=== PATIENT | female | born 1950 | race Hispanic/Latino ===

== ENCOUNTER → 2024-12-25 | Day surgery (SDC) | payer MEDICARE ==
[2024-12-22 10:38] LABS: BASOPHILS % 0.4 % (0.0-1.0); EOSINOPHILS # (AUTO) 0.1 (0.0-0.4); EOSINOPHILS % 1.8 % (0.0-6.0); HEMATOCRIT 38.4 % (34.2-44.1); HEMOGLOBIN 12.7 g/dL (12.0-16.0); LYMPHOCYTES # (AUTO) 1.2 (1.0-3.2); LYMPHOCYTES % 21.4 % (18.0-39.1); MEAN CORPUSCULAR HEMOGLOBIN 31.2 pg (28-32); MEAN CORPUSCULAR HGB CONC 33.1 g/dL (31-35); MEAN CORPUSCULAR VOLUME 94.3 fL (81-99); MONOCYTES # (AUTO) 0.4 (0.2-0.8); MONOCYTES % 6.6 % (4.4-11.3); NEUTROPHILS # (AUTO) 3.8 (2.1-6.9); NEUTROPHILS % 69.6 % (38.7-80.0); PLATELET COUNT 220 x10e3/uL (140-360); RED BLOOD COUNT 4.07 x10e6/uL (3.6-5.1); RED CELL DISTRIBUTION WIDTH 12.8 % (11.7-14.4); WHITE BLOOD COUNT 5.42 x10e3/uL (4.8-10.8)
[2024-12-22 11:09] LABS: ANION GAP 12.3 mmol/L (8-16); CALCIUM 9.4 mg/dL (8.4-10.2); CREATININE, SERUM 0.78 mg/dL (0.57-1.11); POTASSIUM 4.3 mmol/L (3.5-5.1)
[~2024-12-25] MED LIST: ACETAMINOPHEN 1000 MG/100 ML 100 ML IV ONE; ACETAMINOPHEN 1000 MG/100 ML IV PRN; ASPIRIN 325 MG TAB PO SCH; ASPIRIN81 MG PO; ATORVASTATIN CA20 MG PO; BUPIVACAINE/EPI 0.5% 30ML SDV-MPF INJ ONE; CELECOXIB 100 MG CAP PO SCH; DEXAMETHASONE SOD PHOS INJ 4 MG/ML SDV ONE; DIPHENHYDRAMINE HCL INJ 50 MG/ML VIAL IV PRN; DOCUSATE SODIUM 100 MG CAP PO PRN; EPHEDRINE SULFATE INJ 50 MG/ML VIAL ONE; FAMOTIDINE 20 MG/2 ML VIAL IV ONE; FENTANYL CITRATE/PF 100MCG/2 ML INJ ONE; HYDROCODONE/APAP 5MG-325MG TAB PO PRN; HYDROCODONE/APAP 7.5MG-325MG 1 EA TAB ONE; HYDROCODONE/APAP 7.5MG-325MG 1 EA TAB PO PRN; LACTATED RINGER'S 1,000 ML ONE; LIDOCAINE HCL 2% LOCAL INJ 5 ML SDV VIAL INJ ONE; LOSARTAN POTASS25 MG PO; METFORMIN HCL500 MG PO; MIDAZOLAM HCL 2 MG/2 ML VIAL ONE; ONDANSETRON HCL INJ 2MG/ML 2ML 2 MG/ML VIAL IV PRN; ONDANSETRON HCL INJ 2MG/ML 2ML 2 MG/ML VIAL ONE; PROPOFOL IV EMULSION 10 MG/ML 20 ML VIAL ONE; ROPIVACAINE/EPI/CLONIDINE/KET 50 ML SYRINGE INJ ONE; SEVOFLURANE INHAL SOLN 250 ML PEN BTL ONE; SODIUM CHLORIDE 0.9% 1000ML 1,000 ML IV SCH; TRANEXAMIC ACID 1,000 MG/10 ML ML ONE; VITAMIN D31250 MCG PO
[2024-12-25] MEDS: CELECOXIB 200 MG CAP ONE (06:21)
[2024-12-25] MEDS: CEFAZOLIN SODIUM 2 GM ONE (06:21)
[2024-12-25] MEDS: DEXAMETHASONE SOD PHOS 10 MG/1 ML VIAL ONE (06:22)
[2024-12-25] MEDS: GABAPENTIN 300 MG CAP ONE (06:22)
[2024-12-25] MEDS: LACTATED RINGER'S 1,000 ML ONE (06:23)
[2024-12-25 08:52] VITALS: TEMP 98
[2024-12-25] MEDS: KETOROLAC TROMETHAMINE 30 MG/ML VIAL ONE (09:35)
[2024-12-25] MEDS: HYDROCODONE/APAP 7.5MG-325MG 1 EA TAB PO ONE (10:00)
[2024-12-25 11:30] VITALS: BP 112/58; PULSE 78; RESP 18; O2SAT 100
== END | disposition home or self-care (01) ==
LOC: OR 05:18
PROVIDERS: ATTEND Specialist
DX: M17.12 Unilateral primary osteoarthritis, left knee (principal); I10 Essential (primary) hypertension; K21.9 Gastro-esophageal reflux disease without esophagitis; E78.5 Hyperlipidemia, unspecified; F32.A Depression, unspecified; Z01.810 Encounter for preprocedural cardiovascular examination; Z01.812 Encounter for preprocedural laboratory examination; Z01.818 Encounter for other preprocedural examination; Z79.82 Long term (current) use of aspirin; Z79.84 Long term (current) use of oral hypoglycemic drugs; Z79.899 Other long term (current) drug therapy; Z79.85 Long-term (current) use of injectable non-insulin antidiabetic drugs
CPT/HCPCS: 27447; 36415 ×2; 71046; 73560; 80048; 82948; 85025; 86850; 86900; 93005; 97116; 97161; C1713 ×2; C1776 ×3; J0131; J1100 ×2; J1885; J2003; J2250; J2405; J2704; J3010; J7121

== ENCOUNTER → 2025-04-19 | Outpatient (RCR) | payer MEDICARE ==
[~2025-04-19] MED LIST changes: -ACETAMINOPHEN 1000 MG/100 ML 100 ML IV ONE; -ACETAMINOPHEN 1000 MG/100 ML IV PRN; -ASPIRIN 325 MG TAB PO SCH; -BUPIVACAINE/EPI 0.5% 30ML SDV-MPF INJ ONE; -CELECOXIB 100 MG CAP PO SCH; -DEXAMETHASONE SOD PHOS INJ 4 MG/ML SDV ONE; -DIPHENHYDRAMINE HCL INJ 50 MG/ML VIAL IV PRN; -DOCUSATE SODIUM 100 MG CAP PO PRN; -EPHEDRINE SULFATE INJ 50 MG/ML VIAL ONE; -FAMOTIDINE 20 MG/2 ML VIAL IV ONE; -FENTANYL CITRATE/PF 100MCG/2 ML INJ ONE; -HYDROCODONE/APAP 5MG-325MG TAB PO PRN; -HYDROCODONE/APAP 7.5MG-325MG 1 EA TAB ONE; -HYDROCODONE/APAP 7.5MG-325MG 1 EA TAB PO PRN; -LACTATED RINGER'S 1,000 ML ONE; -LIDOCAINE HCL 2% LOCAL INJ 5 ML SDV VIAL INJ ONE; -MIDAZOLAM HCL 2 MG/2 ML VIAL ONE; -ONDANSETRON HCL INJ 2MG/ML 2ML 2 MG/ML VIAL IV PRN; -ONDANSETRON HCL INJ 2MG/ML 2ML 2 MG/ML VIAL ONE; -PROPOFOL IV EMULSION 10 MG/ML 20 ML VIAL ONE; -ROPIVACAINE/EPI/CLONIDINE/KET 50 ML SYRINGE INJ ONE; -SEVOFLURANE INHAL SOLN 250 ML PEN BTL ONE; -SODIUM CHLORIDE 0.9% 1000ML 1,000 ML IV SCH; -TRANEXAMIC ACID 1,000 MG/10 ML ML ONE
== END ==
LOC: PT 03-22 11:33
PROVIDERS: ATTEND Physician Assistant
DX: Z47.1 Aftercare following joint replacement surgery (principal); Z96.652 Presence of left artificial knee joint; M25.562 Pain in left knee; M25.662 Stiffness of left knee, not elsewhere classified; M62.81 Muscle weakness (generalized)

== ENCOUNTER 2025-04-25 17:00 | Outpatient (RCR) | payer MEDICARE | END 2025-05-20 | LOC: PT 17:00 | PROVIDERS: ATTEND Physician Assistant | DX: Z47.1 Aftercare following joint replacement surgery (principal); Z96.652 Presence of left artificial knee joint; M62.81 Muscle weakness (generalized); M25.562 Pain in left knee; M25.662 Stiffness of left knee, not elsewhere classified ==